=== PATIENT | female | born 1950 | race African-American/Black ===

== ENCOUNTER 2017-05-01 06:26 | Inpatient (IN) | payer OTHER ==
[~2017-05-01] VITALS: Ht 144.8 cm; Wt 48.5 kg
[2017-05-01 07:17] LABS: BASOPHIL % 0.8 % (0-2); PLATELET COUNT 253 x10^3mcL (130-400)
[2017-05-01 07:19] LABS: CALCIUM 9.4 mg/dL (8.5-10.1); CARBON DIOXIDE 32.6 mmol/L (21-32); POTASSIUM SERUM 4.3 mmol/L (3.5-5.1)
[2017-05-01 07:20] LABS: RED CELL DISTRIBUTION WIDTH 15.2 % (11.5-14.5)
[2017-05-01 07:23] LABS: ALBUMIN 3.8 g/dL (3.4-5.0); BILIRUBIN TOTAL 0.67 mg/dL (0.20-1.00); TOTAL PROTEIN, SERUM 7.8 g/dL (6.4-8.2)
[2017-05-01] MEDS ORDERED: NOR5 PO (07:54)
[2017-05-01 09:41] LABS: PHOSPHOROUS 3.3 mg/dL (2.5-4.9)
[2017-05-01 09:41] LABS: microscopic required? NO
[2017-05-01 09:46] LABS: CHOLESTEROL/HDL RATIO 3.7
[2017-05-01 09:54] LABS: UA SPECIFIC GRAVITY <=1.005 (1.005-1.035); urine erythrocyte NEGATIVE (NEGATIVE)
[2017-05-01 10:01] LABS: T3 TOTAL 0.99 ng/mL
[2017-05-01 10:04] LABS: FREE T4 0.89 ng/dL (0.76-1.46); FREE THYROXINE INDEX 2.4 ug/dL (1.4-4.5); T4(THYROXINE) 6.7 ug/dL (4.7-13.3)
[2017-05-01 11:09] VITALS: BP 153/89
[2017-05-01 11:34] VITALS: BP 153/89
[2017-05-01 12:53] VITALS: BP 119/60
[2017-05-01 17:42] VITALS: BP 124/69
[2017-05-01 21:46] VITALS: BP 119/59
[2017-05-02 05:07] VITALS: BP 128/82
[2017-05-02 08:10] LABS: CALCIUM 8.9 mg/dL (8.5-10.1); CARBON DIOXIDE 32.1 mmol/L (21-32); CHLORIDE SERUM 106 mmol/L (98-107); CREATININE SERUM 0.8 mg/dL (0.6-1.0); GFR1 > 60 mL/min; GLUCOSE SERUM 87 mg/dL (74-106); POTASSIUM SERUM 4.1 mmol/L (3.5-5.1); SODIUM SERUM 142 mmol/L (136-145)
[2017-05-02 08:19] LABS: BASOPHIL % 0.5 % (0-2); PLATELET COUNT 235 x10^3mcL (130-400)
[2017-05-02 10:29] VITALS: BP 117/55
[2017-05-02 14:00] VITALS: BP 122/67
[2017-05-02 18:28] VITALS: BP 114/57
[2017-05-02 21:05] VITALS: BP 118/58
[2017-05-03 06:00] VITALS: BP 135/55
[2017-05-03 07:31] LABS: BASOPHIL % 1.7 % (0-2); PLATELET COUNT 225 x10^3mcL (130-400); RED CELL DISTRIBUTION WIDTH 14.2 % (11.5-14.5)
[2017-05-03 07:42] LABS: rbc morphology (normal/abnorm) ABNORMAL (NORMAL)
[2017-05-03 09:00] VITALS: BP 118/69
[2017-05-03 13:08] VITALS: BP 116/64
[2017-05-03] MEDS ORDERED: BAY PO ×2 (14:01→14:49)
[2017-05-03] MEDS ORDERED: ATORVASTATIN CA40 M1 PO ×2 (14:04→14:48)
[2017-05-03 14:37] VITALS: BP 116/64
[2017-05-03] MEDS ORDERED: NOR5 PO (14:48)
== END 2017-05-03 15:54 | disposition home or self-care (01) | DRG 206 ==
LOC: ED 06:26 → DU 08:31
PROVIDERS: Emergency Medicine; ADMIT Family Medicine
DX: M94.0 Chondrocostal junction syndrome [Tietze] (principal); R73.03 Prediabetes; F41.1 Generalized anxiety disorder; E78.2 Mixed hyperlipidemia; I10 Essential (primary) hypertension; D50.9 Iron deficiency anemia, unspecified; Z68.23 Body mass index [BMI] 23.0-23.9, adult
CPT/HCPCS: 82962; 83880; 84439; 85378; J7030; Q0092

== ENCOUNTER 2017-06-16 15:35 | Emergency (ER) | payer OTHER ==
[~2017-06-16] VITALS: Ht 144.8 cm; Wt 52.6 kg
[~2017-06-16 15:35] MED LIST: ATORVASTATIN CA40 M1 PO; BAY PO; NOR5 PO
[2017-06-16 16:17] VITALS: Ht 144.8 cm; Wt 52.6 kg
[2017-06-17 00:19] VITALS: BP 125/65
== END 2017-06-17 00:19 | disposition home or self-care (01) ==
LOC: ED 15:35
DX: J06.9 Acute upper respiratory infection, unspecified (principal); J02.9 Acute pharyngitis, unspecified; M79.1 Myalgia; I10 Essential (primary) hypertension; E78.00 Pure hypercholesterolemia, unspecified